=== PATIENT | male | born 1940 | race Two or more races ===

== ENCOUNTER 2018-01-13 10:14 | Day surgery (SDC) | payer MEDICARE, OTHER ==
[~2018-01-13 10:14] MED LIST: ASPI-630 PO; ATOR40TA59 PO; BALANCED SALT IRRIG OPHTH SOLN 15 ML BOTTLE. ONE; BUPR150T6 PO; CHONDROIT-SOD-HYALURONATE KIT. ONE; CHONDROITIN-SOD-HYALURONATE 0.5 ML DISP.SYRIN. ONE; CIPROFLOXACIN 0.3% OPHTH SOLUTION 5ML BOTTLE. OS ONE; DOXA4TAB3 PO; FAMO40TA4 PO; FERR325T14 PO; FOLIC ACID GT; HYDROmorphone 2 MG/ML VIAL IV PRN; IV RINGERS,LACTATED 1000ML 1,000 ML IV SCH; LEVO137T3 PO; LIDOCAINE 1% PF 2 ML VIAL. ID PRN; LIDOCAINE 1% PF 2 ML VIAL. ONE; LIDOCAINE 2% JELLY 6ML IN APPLICATOR. MM SCH; MELA3TAB2 PO; MORPHINE SULFATE 2 MG/ML VIAL. IV PRN; NEO/POLYMYX/DEXAMETH OPHTH OINTMENT 3.5GM TUBE. ONE; ONDANSETRON PF 4 MG/2 ML VIAL. IV PRN; PROCHLORPERAZINE 10 MG/2 ML VIAL. IV PRN; PROPARACAINE 0.5% OPHTH SOLUTION 15ML BOTTLE. OS ONE; TAMS0.4C2 PO; fentaNYL PF VIAL 100 MCG/2 ML VIAL IV PRN
[2018-01-13] MEDS: PHENYLEPHRINE 10% OPHTH SOLUTION 5ML BOTTLE. OS SCH ×3 (10:58→11:08)
[2018-01-13] MEDS: CYCLOPENTOLATE 1% OPTH SOLUTION 2ML BOTTLE. OS SCH ×3 (10:58→11:08)
[2018-01-13 12:46] VITALS: BP 116/61
[2018-01-13] MEDS ORDERED: acetaZOLAMIDE SODIUM 500 MG VIAL. IVP ONE (13:00)
--- NOTE | 2018-01-13 13:46 | OP ---
DATE OF SURGERY: 01/13/2018 PREOPERATIVE DIAGNOSIS: Cataract of the left eye. POSTOPERATIVE DIAGNOSIS: . PROCEDURE: Phacoemulsification with posterior chamber intraocular lens implantation of the left eye. INDICATIONS: Painless progressive visual loss and visually significant cataract and difficulty reading. SURGEON: Dr. Gerry Rowan. ANESTHESIA: Topical with monitored anesthesia care. DESCRIPTION OF PROCEDURE: The left eye was prepped with Betadine in the usual sterile fashion and draped. A paracentesis was performed followed by instillation of 1% preservative-free lidocaine. Viscoelastic was injected and a temporal clear corneal incision was made. The capsulorrhexis was then performed followed by hydrodissection. The phacoemulsification handpiece was used to remove the nucleus in a modified stop and chop fashion. The I/A handpiece was used to remove the remainder of the cortex and viscoelastic was injected in the capsular bag. An Manas model [id number] with a power of 18.5 diopters was placed into the capsular bag and the wounds were hydrated with balanced salt solution. The viscoelastic was removed with the I/A handpiece and once no leak was noted, Maxitrol was placed on the eye and the eye shielded and the patient was sent to the recovery room uneventfully. Please note that there was constriction of the pupil and it was slightly manipulated to ensure that the lens was within the bag, which had appeared to be at the conclusion of the case. ZARINA ZEPEDA MD DR: LARISA/alexander JOB#: [id number] / [id number]
== END 2018-01-13 14:17 | disposition home or self-care (01) ==
LOC: SURG 10:14
PROVIDERS: ATTEND Ophthalmology
DX: H04.123 Dry eye syndrome of bilateral lacrimal glands (principal); H25.13 Age-related nuclear cataract, bilateral; H43.393 Other vitreous opacities, bilateral; E78.5 Hyperlipidemia, unspecified; E03.9 Hypothyroidism, unspecified; Z87.01 Personal history of pneumonia (recurrent); Z95.1 Presence of aortocoronary bypass graft; Z95.810 Presence of automatic (implantable) cardiac defibrillator; Z98.890 Other specified postprocedural states; Z87.891 Personal history of nicotine dependence; Z72.89 Other problems related to lifestyle; Z79.2 Long term (current) use of antibiotics; Z79.899 Other long term (current) drug therapy; Z88.1 Allergy status to other antibiotic agents; Z88.8 Allergy status to other drugs, medicaments and biological substances; Z91.041 Radiographic dye allergy status
CPT/HCPCS: 66984; C1780; J0171; J0690; J1120; J1580